=== PATIENT | female | born 1990 | race Caucasian/White ===

== ENCOUNTER 2021-08-23 19:00 | Emergency (ER) | payer OTHER ==
[2021-08-23] MEDS ORDERED: ONDANSETRON 4 MG/2 ML VIAL IVPUSH ONE (19:36)
[2021-08-23] MEDS ORDERED: morphine CARPU-JECT 2 MG/1 ML DISP.SYRIN IVPUSH ONE (19:36)
[2021-08-23] MEDS ORDERED: SODIUM CHLORIDE 1,000 ML IV ONE (19:36)
[2021-08-23] MEDS ORDERED: ONDANSETRON 4 MG/2 ML VIAL ONE (19:56)
[2021-08-23] MEDS ORDERED: morphine SULFATE 4 MG/ML VIAL ONE (19:56)
[2021-08-23 19:59] VITALS: BMI 34.0
[2021-08-23 20:14] LABS: HEMATOCRIT 37.2 % (32.4-45.2); HEMOGLOBIN 13.2 G/dL (10.7-15.3); MCH 31.1 pg (25.7-33.7); MCHC 35.4 g/dl (32.0-36.0); PLATELET COUNT 206.8 10^3/uL (134-434); RBC 4.23 10^6/uL (3.60-5.2); RDW 13.9 % (11.6-15.6); WHITE BLOOD COUNT 6.3 10^3/uL (4.0-10.8)
[2021-08-23 20:16] LABS: HCG,QUALITATIVE URINE Negative
[2021-08-23 20:28] LABS: ALBUMIN 3.6 g/dl (3.4-5.0); BILIRUBIN,TOTAL 0.9 mg/dl (0.2-1); CALCIUM 8.8 mg/dl (8.5-10); CREATININE 0.7 mg/dl (0.55-1.3); TOT PROT 6.4 g/dl (6.4-8.2)
[2021-08-23 20:32] LABS: EPITHELIAL CELLS FEW /hpf
[2021-08-23 20:33] LABS: PLATELET ESTIMATE ADEQUATE
[2021-08-24] MEDS ORDERED: PIPERACILLIN/TAZOB 3.375 GM 3.375 GM in DEXTROSE 5%-WATER - 50 ML IVPB SCH (01:21)
[2021-08-24] MEDS ORDERED: ACETAMINOPHEN 1000 MG/100 ML BAG IVPB PRN (01:27)
[2021-08-24] MEDS ORDERED: ONDANSETRON 4 MG/2 ML VIAL IVPUSH PRN (01:29)
[2021-08-24] MEDS ORDERED: D5-NS + 20 MEQ KCL - 20 MEQ/1,000 ML INFUS.BAG IV SCH (01:30)
[2021-08-24] MEDS ORDERED: PIPERACILLIN/TAZOBACTAM 3.375 GM VIAL IVPB ONE ×2 (02:02→08:51)
[2021-08-24 06:33] VITALS: BP 98/57; TEMP 98
[2021-08-24 08:20] LABS: INR 1.11 (0.83-1.09); PROTHROMBIN TIME (PATIENT) 12.8 SEC (9.7-13.0)
[2021-08-24 08:23] LABS: ACTIVATED PTT 29.2 SECONDS (25.2-36.5)
[2021-08-24 08:28] LABS: HEMATOCRIT 33.7 % (32.4-45.2); HEMOGLOBIN 11.8 G/dL (10.7-15.3); MCH 30.9 pg (25.7-33.7); MEAN CELL VOLUME 88.5 fl (80-96); MEAN PLT VOLUME 9.7 fl (7.5-11.1); PLATELET COUNT 179.4 10^3/uL (134-434); RBC 3.81 10^6/uL (3.60-5.2); RDW 14.1 % (11.6-15.6)
[2021-08-24 08:33] LABS: CALCIUM 8.4 mg/dl (8.5-10); CREATININE 0.7 mg/dl (0.55-1.3); MAGNESIUM 1.9 mg/dL (1.8-2.4); PHOSPHOROUS 3.7 mg/dl (2.5-4.9)
[2021-08-24] MEDS ORDERED: ACETAMINOPHEN INJECTION 100 ML IVPB ONE (08:46)
[2021-08-24] MEDS ORDERED: KETOROLAC TROMETHAMINE 30 MG/1 ML VIAL ONE (09:02)
[2021-08-24 10:22] VITALS: PULSE 45
[2021-08-25] MEDS ORDERED: PIPERACILLIN/TAZOB 3.375 GM 3.375 GM in DEXTROSE 5%-WATER - 50 ML IVPB SCH (03:00)
== END 2021-08-24 10:45 | disposition home or self-care (01) ==
LOC: FER 19:00
PROC: 3E033GC Introduction of Other Therapeutic Substance into Peripheral Vein, Percutaneous Approach (ICD-10-PCS; principal; 2021-08-23)
DX: K81.0 Acute cholecystitis (principal)
CPT/HCPCS: 36415; 71045-TC-FY; 74176-TC; 76705-TC; 80048; 80053; 81003; 81015; 83735; 84100; 84703; 85025; 85610; 85730; 93005; 99285-25; C9803-CS; U0003; U0005

== ENCOUNTER 2021-08-27 04:03 | Day surgery (SDC) | payer OTHER ==
[2021-08-26 16:31] VITALS: BMI 34.2
[2021-08-27] MEDS ORDERED: BUPIVACAINE HCL/PF 0.25% (2.5MG/ML) 10 ML VIAL ONE (07:14)
[2021-08-27] MEDS ORDERED: BUPIVACAINE HCL/PF 0.25% (2.5MG/ML) 10 ML VIAL IJ ONE ×2 (07:20→08:31)
[2021-08-27] MEDS ORDERED: SUCCINYLCHOLINE CHLORIDE 200 MG/10 ML SYRINGE ONE (07:33)
[2021-08-27] MEDS ORDERED: PROPOFOL 20 ML ONE (07:33)
[2021-08-27] MEDS ORDERED: ROCURONIUM BROMIDE 50 MG/5 ML SYRINGE ONE (07:33)
[2021-08-27] MEDS ORDERED: MIDAZOLAM HCL 2 MG/2 ML SINGLE DOSE VIAL ONE (07:33)
[2021-08-27] MEDS ORDERED: LIDOCAINE HCL/PF 2% SDV 5ML VIAL ONE (07:33)
[2021-08-27] MEDS ORDERED: cefOXitin SODIUM 2 GM VIAL (RESTRICTED TO ID) IVPB ONE ×2 (08:10→08:15)
[2021-08-27] MEDS ORDERED: NEOSTIGMINE METHYLSULFATE 0.5 MG/1 ML - 10 ML MDV ONE (08:40)
[2021-08-27] MEDS ORDERED: FENTANYL CITRATE/PF 50 MCG/ML VIAL ONE (09:37)
[2021-08-27] MEDS ORDERED: ONDANSETRON 4 MG/2 ML VIAL IVPUSH PRN (09:39)
[2021-08-27] MEDS ORDERED: PROMETHAZINE HCL 25 MG/1 ML VIAL IVPUSH PRN (09:39)
[2021-08-27] MEDS ORDERED: LACTATED RINGERS SOLUTION 1,000 ML IV SCH (09:45)
[2021-08-27] MEDS ORDERED: GLYCOPYRROLATE 0.2 MG/1 ML VIAL ONE (09:59)
[2021-08-27] MEDS ORDERED: GLYCOPYRROLATE 0.2 MG/1 ML VIAL IVPB ONE (11:15)
[2021-08-27] MEDS ORDERED: oxyCODONE HCL 5 MG TABLET PO PRN ×2 (11:15)
[2021-08-27 17:19] VITALS: BP 110/53; PULSE 49; TEMP 98.2
== END 2021-08-27 12:45 | disposition home or self-care (01) ==
LOC: JASU-SURG 04:03
PROVIDERS: ATTEND Surgery
PROC: 0FT44ZZ Resection of Gallbladder, Percutaneous Endoscopic Approach (ICD-10-PCS; principal; 2021-08-27 07:30)
DX: K81.0 Acute cholecystitis (principal)
CPT/HCPCS: 81025; 88304-TC; 94760